=== PATIENT | female | born 1960 | race Hispanic/Latino ===

== ENCOUNTER 2019-10-13 08:11 | Day surgery (SDC) | payer OTHER ==
[2019-10-13] VITALS (19 sets, daily range): BP systolic 122–153; BP diastolic 66–94
[~2019-10-13] VITALS: Ht 167.6 cm; Wt 83.9 kg
[~2019-10-13 08:11] MED LIST: INVA1IVPB IV; OXYB5TAB15 PO
[2019-10-13] MEDS: MEROPENEM 1 GM VIAL IVP SCH (09:00)
[2019-10-13] MEDS: LACTATED RINGERS 1000ML 1,000 ML IV ONE (09:45)
[2019-10-13 09:48] LABS: BASOPHILS % (AUTO) 0.4 % (0.0-5.0); EOSINOPHILS % (AUTO) 1.3 % (0.0-8.0); HEMATOCRIT 40.6 % (36-48); MEAN CORPUSCULAR HEMOGLOBIN 29.8 pg (27.0-33.0); MEAN CORPUSCULAR HGB CONC 31.8 g/dL (32.0-36.0); MEAN CORPUSCULAR VOLUME 93.8 fL (79-99); MONOCYTES % (AUTO) 7.5 % (3.0-13.0); NEUTROPHILS % (AUTO) 71.6 % (40.0-77.0); PLATELET COUNT (AUTO) 163 K/uL (130-400); RED BLOOD CELL COUNT(AUTO) 4.33 MIL/uL (4.00-5.50); RED CELL DISTRIBUTION WIDTH 13.3 % (11.0-15.5); WHITE BLOOD COUNT (AUTO) 5.6 K/uL (4.8-10.8)
[2019-10-13] MEDS ORDERED: LIDOCAINE PF 2% 5ML ABBOJECT ONE (09:48)
[2019-10-13] MEDS ORDERED: SUCCINYLCHOLINE CHLORIDE 20 MG/ML 10 ML VIAL ONE (09:48)
[2019-10-13] MEDS ORDERED: MIDAZOLAM HCL 1 MG/ML 2ML VIAL ONE (09:48)
[2019-10-13] MEDS ORDERED: PROPOFOL 10 MG/ML 20ML VIAL IV ONE (09:48)
[2019-10-13] MEDS ORDERED: FENTANYL CITRATE PF 50 MCG/1 ML 2ML VIAL ONE ×2 (09:48→10:58)
[2019-10-13] MEDS ORDERED: ONDANSETRON HCL 4 MG/2 ML VIAL ONE (09:50)
[2019-10-13] MEDS ORDERED: ROCURONIUM 10MG/1ML SYR 10 MG/ML ML ONE (09:52)
[2019-10-13 10:01] LABS: POTASSIUM 4.3 mmol/L (3.5-5.1)
[2019-10-13 10:09] LABS: ALBUMIN 3.2 g/dL (3.5-5.0); BILIRUBIN,TOTAL 0.5 mg/dL (0.2-1.0); TOTAL PROTEIN, SERUM 6.5 g/dL (6.0-8.3)
[2019-10-13] MEDS: IOHEXOL-350 50ML VIAL IV ONE (11:50)
--- NOTE | 2019-10-13 13:00 | NUR ---
REPORT RECEIVED REPORT FROM EVONNE BISHOP RN
[2019-10-13] MEDS: ONDANSETRON HCL 4 MG/2 ML VIAL ONE (13:12)
--- NOTE | 2019-10-13 13:30 | NUR ---
CHUNG CATH REMOVAL CHUNG REMOVED BY CHRIS MILLER UNDER ASEPTIC TECHNIQUE. PT HAD 600MLS OF PINK[place] TINGE URINE. PT TOLERATED IT WELL
[2019-10-13] MEDS: PHENAZOPYRIDINE HCL 200 MG TABLET ONE (14:15)
--- NOTE | 2019-10-13 14:15 | NUR ---
PT REFUSED MED PT REFUSED PYRIDIUM DUE TO NAUSEA. PT STATED SHE WILL TAKE DOSE LATER TODAY POST NAUSEA.
--- NOTE | 2019-10-13 14:30 | NUR ---
DISCHARGE PT TAKEN OUT VIA W/C. DISCHARGE INSTRUCTIONS GIVEN TO JESUS GARVEY OVER THE PHONE BY CHRIS JOSEPH RN. PT IN NO DISTRESS
== END 2019-10-13 14:30 | disposition home or self-care (01) ==
LOC: DAH 08:11
PROVIDERS: ATTEND Urology
DX: N13.2 Hydronephrosis with renal and ureteral calculous obstruction (principal); Z79.899 Other long term (current) drug therapy
CPT/HCPCS: 36415; 52332; 52353; 74420; 80053; 82360; 85025; A4222; A4223 ×2; A4344; A4649; A4663; A5113; C1758; C1769 ×2; C1894; C2617; J0330; J2001; J2185; J2250; J2405 ×2; J2704; J3010 ×2; J7030; J7120; Q9967